=== PATIENT | female | born 1995 | race Two or more races ===

== ENCOUNTER 2017-03-14 08:45 | Observation (INO) | payer MEDICAID ==
[~2017-03-14] VITALS: Ht 154.9 cm; Wt 79.4 kg
[2017-03-14 08:56] VITALS: BP 146/80
[2017-03-14 10:17] LABS: Urine Bacteria NONE SEEN /hpf (None Seen); Urine Blood Negative /uL (Negative); Urine Mucus FEW (None Seen); Urine Specific Gravity 1.013 (1.001-1.035); Urine WBC <1 /hpf (0 - 5)
== END 2017-03-14 10:45 | disposition home or self-care (01) | DRG 566 ==
LOC: ER 08:45 → LDRP 09:04 → ER 09:04 → LDRP 09:20
PROVIDERS: ADMIT Obstetrics & Gynecology; ATTEND Obstetrics & Gynecology
DX: O26.892 Other specified pregnancy related conditions, second trimester (principal); R10.9 Unspecified abdominal pain; Z3A.23 23 weeks gestation of pregnancy
CPT/HCPCS: 59025; 81001; 81002; 99285; G0378